=== PATIENT | female | born 1940 | race American Indian/Alaskan Native ===

== ENCOUNTER 2018-03-28 16:05 | Emergency (ER) | payer MEDICARE ==
[2018-03-28 16:11] VITALS: BP 175/102
== END 2018-03-28 20:20 | disposition left against medical advice (07) ==
LOC: ED 16:05
DX: G43.909 Migraine, unspecified, not intractable, without status migrainosus (principal); Z53.21 Procedure and treatment not carried out due to patient leaving prior to being seen by health care provider